=== PATIENT | male | born 1975 | race Caucasian/White ===

== ENCOUNTER 2018-03-12 09:32 | Emergency (ER) ==
[2018-03-12 09:39] VITALS: BP 129/83; TEMP 98.1; BMI 25.0
[2018-03-12] MEDS ORDERED: CLEOCIN PO STA (09:47)
[2018-03-12] MEDS ORDERED: NORCO 7.5-325 PO STA (09:47)
--- NOTE | 2018-03-12 09:50 | ED.PDOC ---
General ED Provider: Dr. ANALISA GOMEZ-ER Chief Complaint: Abscess Stated Complaint: jackie had staph before---jackie got several places in my hairline-- someone popped one of them with a needle Time Seen by Physician: 09:40 Mode of Arrival: Walk-In Information Source: Patient Exam Limitations: No limitations Nursing and Triage Documentation Reviewed and Agree: Yes Does patient meet sepsis criteria?: No System Inflammatory Response Syndrome: Not Applicable Sepsis Protocol: For patient's 13 years and over: Temp is 96.8 and below OR 101 and greater Pulse >90 BPM Resp >20/minute Acutely Altered Mental Status Are patient's symptoms suggestive of a new infection, such as: -Pneumonia -Skin, Soft Tissue -Endocarditis -UTI -Bone, Joint Infection -Implantable Device -Acute Abdominal Infection -Wound Infection -Meningitis -Blood Stream Catheter Infection -Unknown Skin Complaint Exam - Skin/Soft Tissue Complaint/Exam Onset/Duration: several days Symptoms Are: Still present Initial Severity: Mild Current Severity: Moderate Location: posterior scalp and posterior hairline Character: Reports: Redness, Raised, Painful Aggravating: Reports: None Alleviating: Reports: None Associated Signs and Symptoms: Reports: Tenderness Related History: Reports: Similar episode Related Surgical History: Reports: None Recent Exposure to Others w/Similar Symptoms: No Skin Findings: Present: Erythema, Skin lesion, Pustules Joint Tenderness Present: No Differential Diagnoses: Cellulitis, Infection Review of Systems - Review Of Systems Constitutional: Reports: No symptoms Eyes: Reports: No symptoms Ears, Nose, Mouth, Throat: Reports: No symptoms Respiratory: Reports: No symptoms Cardiac: Reports: No symptoms GI: Reports: No symptoms : Reports: No symptoms Musculoskeletal: Reports: No symptoms Skin: Reports: Lesions, Lumps Neurological: Reports: No symptoms Endocrine: Reports: No symptoms Hematologic/Lymphatic: Reports: No symptoms All Other Systems: Reviewed and Negative Past Medical History - Past Medical History Previously Healthy: Yes Endocrine: Reports: None Cardiovascular: Reports: None Respiratory: Reports: None Hematological: Reports: None Gastrointestinal: Reports: None Genitourinary: Reports: None Neuro/Psych: Reports: None Musculoskeletal: Reports: None Cancer: Reports: None - Surgical History General Surgical History: Reports: None - Family History Family History: Reports: None - Social History Smoking Status: Current every day smoker Hx Substance Use: No Alcohol Screening: Occasionally Lives: With family - Immunizations Tetanus Shot up to Date: Yes Physical Exam - Physical Exam Appearance: Well-appearing Pain Distress: Mild Eyes: CARSON, EOMI, Conjunctiva clear ENT: Ears normal, Nose normal, Oropharynx normal Neck: Supple Respiratory: Airway patent, Breath sounds clear, Breath sounds equal, Respirations nonlabored Cardiovascular: RRR GI/: Soft Musculoskeletal: Normal strength Skin: Warm (noted several places on his posterior hairline--no obvious abscess seen--follicular in nature) Neurological: Sensation intact, Alert, Oriented Psychiatric: Affect appropriate, Mood appropriate Critical Care Note - Critical Care Note Total Time (mins): 0 Course - Course Orders, Labs, Meds: Orders Category Date Time Status Clindamycin HCl [Cleocin] MEDS 03/12/18 09:47 Discontinued 300 mg PO ONCE STA Hydrocodone Bit/Acetaminophen [[place] 7.5-325] MEDS 03/12/18 09:47 Discontinued 1 tab PO ONCE STA Medications Discontinued Medications Generic Name Dose Route Start Last Admin Trade Name Freq PRN Reason Stop Dose Admin Hydrocodone Bitart/Acetaminophen 1 tab 03/12/18 09:47 03/12/18 09:54 [place] 7.5-325 PO 03/12/18 09:48 1 tab ONCE STA Administration Clindamycin HCl 300 mg 03/12/18 09:47 03/12/18 09:54 Cleocin PO 03/12/18 09:48 300 mg ONCE STA Administration MR Santoro asked me to "veronica it"--i explained the lesions were not ready for i and d yet--he says he is returning to work today and doesnt want to deal with it --i explained with warm compresses and antbx maybe it would be ready in 1-2 days ) Vital Signs: Temp Pulse Resp BP Pulse Ox 03/12/18 09:33 98.1 F 101 H 16 129/83 96 Departure - Departure Time of Disposition: 10:10 Disposition: HOME SELF-CARE Discharge Problem: Folliculitis Instructions: Folliculitis (ED) Condition: Good Pt referred to PMD for follow-up: Yes IPMP verified?: No Additional Instructions: warm compresses 10min q 2hs---clindamycin 300mg tid 7 days 0--norco 7.5mg q 4hrs prn pain #4---f/u with pcp in 1-2 days-- Allergies/Adverse Reactions: Allergies banana Adverse Reaction (Verified 03/12/18 09:41) Home Medications: Ambulatory Orders 1 [No Reported Medications] 03/12/18
== END 2018-03-12 10:17 | disposition home or self-care (01) ==
LOC: ED 09:32
DX: L73.9 Follicular disorder, unspecified (principal); F17.210 Nicotine dependence, cigarettes, uncomplicated
CPT/HCPCS: 99283

== ENCOUNTER 2018-04-22 10:50 | Emergency (ER) ==
[2018-04-22 10:59] VITALS: BP 138/75; TEMP 98.9; BMI 23.0
[2018-04-22] MEDS ORDERED: LIDOCAINE HCL 1% SDV SUBCUT STA (11:10)
--- NOTE | 2018-04-22 12:04 | ED.PDOC ---
General ED Provider: Dr. DESTIN BUENROSTRO Chief Complaint: Abscess Stated Complaint: patient noted swelling and redness to the right forarm and scalp for few days. He tried to have someone veronica the right forearm wound but it got worse. Time Seen by Physician: 10:30 Mode of Arrival: Walk-In Information Source: Patient Nursing and Triage Documentation Reviewed and Agree: Yes Does patient meet sepsis criteria?: No System Inflammatory Response Syndrome: Not Applicable Sepsis Protocol: For patient's 13 years and over: Temp is 96.8 and below OR 101 and greater Pulse >90 BPM Resp >20/minute Acutely Altered Mental Status Are patient's symptoms suggestive of a new infection, such as: -Pneumonia -Skin, Soft Tissue -Endocarditis -UTI -Bone, Joint Infection -Implantable Device -Acute Abdominal Infection -Wound Infection -Meningitis -Blood Stream Catheter Infection -Unknown Skin Complaint Exam - Skin/Soft Tissue Complaint/Exam Onset/Duration: 1 week Symptoms Are: Still present Timing: Constant Initial Severity: Moderate Current Severity: Severe Location: Right forearm and occipital scalp area. 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, Prior MRSA/VRE Recent Exposure to Others w/Similar Symptoms: No Skin Findings: Present: Fluctuant mass, Lymphangitic streaking, Skin lesion Differential Diagnoses: Abscess, Cellulitis, Infection, Lymphadenitis, MRSA Review of Systems - Review Of Systems Constitutional: Reports: No symptoms Eyes: Reports: No symptoms Ears, Nose, Mouth, Throat: Reports: No symptoms Respiratory: Reports: No symptoms Cardiac: Reports: No symptoms GI: Reports: No symptoms : Reports: No symptoms Musculoskeletal: Reports: No symptoms Skin: Reports: Lesions (as in HPI ) Neurological: Reports: Anxiety Endocrine: Reports: No symptoms Hematologic/Lymphatic: Reports: No symptoms All Other Systems: Reviewed and Negative Past Medical History - Past Medical History Previously Healthy: Yes Endocrine: Reports: None Cardiovascular: Reports: None Respiratory: Reports: None Hematological: Reports: None Gastrointestinal: Reports: None Genitourinary: Reports: None Neuro/Psych: Reports: None Musculoskeletal: Reports: None Cancer: Reports: None - Surgical History General Surgical History: Reports: None - Family History Family History: Reports: None - Social History Smoking Status: Current every day smoker Hx Substance Use: No Alcohol Screening: Occasionally - Immunizations Tetanus Shot up to Date: Yes Physical Exam - Physical Exam Appearance: Ill-appearing Ill-appearing: Mild Pain Distress: Moderate Respiratory: Respirations nonlabored Skin: Warm, Dry Psychiatric: Anxious Procedures - Incision and Drainage Site: Right forarm and occipital scalp area. Instrument Used: 11 Blade I & D Procedure: Yes: Hibiclens Prep Lidocaine Used: Yes Type of Drainage: Present: Pus, Blood Irrigated: Yes Progress: Tolerated poorly due to sensitivity to pain despite enough lidocaine used. Critical Care Note - Critical Care Note Total Time (mins): 0 Course - Course Orders, Labs, Meds: Orders Category Date Time Status CULTURE WOUND [WOUND CULTURE] Stat LAB 04/22/18 11:26 Uncollected Lidocaine HCl/Pf [Lidocaine HCl 1% Sdv] MEDS 04/22/18 11:10 Discontinued 10 ml SUBCUT ONCE STA Medications Discontinued Medications Generic Name Dose Route Start Last Admin Trade Name Freq PRN Reason Stop Dose Admin Lidocaine HCl 10 ml 04/22/18 11:10 Lidocaine Hcl 1% Sdv SUBCUT 04/22/18 11:11 ONCE STA Vital Signs: Temp Pulse Resp BP Pulse Ox 04/22/18 10:55 98.9 F 86 18 138/75 98 Departure - Departure Time of Disposition: 12:05 Disposition: HOME SELF-CARE Discharge Problem: Abscess Instructions: Abscess (ED) Condition: Fair Pt referred to PMD for follow-up: Yes IPMP verified?: No Additional Instructions: Take antibiotics as prescribed until gone. Follow up with the clinic in 2 days to have packing changed on the right forearm. Prescriptions: Ibuprofen [Motrin] 600 mg PO Q6H PRN #30 tablet PRN Reason: Analgesia Sulfamethoxazole/Trimethoprim [Bactrim Ds Tablet] 1 each PO BID #20 tablet Tramadol HCl [Ultram] 50 mg PO Q6H PRN #10 tablet PRN Reason: Severe Pain Allergies/Adverse Reactions: Allergies banana Adverse Reaction (Verified 03/12/18 09:41) Home Medications: Ambulatory Orders Ibuprofen [Motrin] 600 mg PO Q6H PRN #30 tablet 04/22/18 Sulfamethoxazole/Trimethoprim [Bactrim Ds Tablet] 1 each PO BID #20 tablet 04/22 Tramadol HCl [Ultram] 50 mg PO Q6H PRN #10 tablet 04/22/18 Disposition Discussed With: Patient
== END 2018-04-22 12:22 | disposition home or self-care (01) ==
LOC: ED 10:50
DX: L02.413 Cutaneous abscess of right upper limb (principal); L02.811 Cutaneous abscess of head [any part, except face]; F17.210 Nicotine dependence, cigarettes, uncomplicated
CPT/HCPCS: 87070; 87186; 99283

== ENCOUNTER 2018-12-05 17:29 | Emergency (ER) ==
[2018-12-05 17:33] VITALS: TEMP 98.2; BMI 23.3
[2018-12-05] MEDS ORDERED: SODIUM CHLORIDE IV STA (17:33)
[2018-12-05] MEDS ORDERED: DECADRON IV STA (17:33)
[2018-12-05] MEDS ORDERED: EPINEPHRINE 1 MG/ML AMP IM STA (17:33)
[2018-12-05] MEDS ORDERED: SODIUM CHLORIDE 1,000 ML IV STA (17:34)
[2018-12-05] MEDS ORDERED: DECADRON 4 MG/ML SDV IVP STA (17:36)
[2018-12-05] MEDS ORDERED: BENADRYL PO STA (17:46)
[2018-12-05 18:14] VITALS: BP 135/76
--- NOTE | 2018-12-05 18:52 | ED.PDOC ---
General ED Provider: Dr. RADHA ALVARADO Chief Complaint: Allergic Reaction Stated Complaint: Cant breathe; throat closing off - allergic to banannas - ate one 2 hours ago; 45 minutes ago started feeling allergic sx. Had this happen one time before and throat nearly closed off. Time Seen by Physician: 17:35 Mode of Arrival: Walk-In Information Source: Patient Nursing and Triage Documentation Reviewed and Agree: Yes Does patient meet sepsis criteria?: No System Inflammatory Response Syndrome: Not Applicable Sepsis Protocol: For patient's 13 years and over: Temp is 96.8 and below OR 101 and greater Pulse >90 BPM Resp >20/minute Acutely Altered Mental Status Are patient's symptoms suggestive of a new infection, such as: -Pneumonia -Skin, Soft Tissue -Endocarditis -UTI -Bone, Joint Infection -Implantable Device -Acute Abdominal Infection -Wound Infection -Meningitis -Blood Stream Catheter Infection -Unknown Review of Systems - Review Of Systems Constitutional: Reports: Malaise Ears, Nose, Mouth, Throat: Reports: Mouth swelling (Subjectively; taking without difficulty) Respiratory: Reports: Short of air GI: Reports: No symptoms. Denies: Nausea All Other Systems: Reviewed and Negative Past Medical History - Past Medical History Previously Healthy: Yes Endocrine: Reports: None Cardiovascular: Reports: None Respiratory: Reports: None Hematological: Reports: None Gastrointestinal: Reports: None Genitourinary: Reports: None Neuro/Psych: Reports: None Musculoskeletal: Reports: None Cancer: Reports: None - Surgical History General Surgical History: Reports: None - Family History Family History: Reports: None - Social History Smoking Status: Current every day smoker, Heavy tobacco smoker Hx Substance Use: No Alcohol Screening: None Physical Exam - Physical Exam Appearance: Ill-appearing Ill-appearing: Mild Pain Distress: None Eyes: CARSON, EOMI ENT: Oropharynx normal Neck: Supple Respiratory: Airway patent, Breath sounds clear Cardiovascular: RRR, Pulses normal GI/: Soft, Nontender Musculoskeletal: Normal strength Skin: Warm, Dry, Normal color Neurological: Sensation intact, Motor intact, Alert, Oriented Psychiatric: Affect appropriate, Mood appropriate, Anxious (Very) Critical Care Note - Critical Care Note Total Time (mins): 25 Course - Course Orders, Labs, Meds: Orders Category Date Time Status Dexamethasone 4 mg/ml Inj [Decadron 4 mg/ml Sdv] MEDS 12/05/18 17:36 Discontinued 8 mg IVP ONCE STA Diphenhydramine Liquid [Benadryl] MEDS 12/05/18 17:46 Discontinued 25 mg PO ONCE STA Epinephrine Amp [Epinephrine 1 mg/ml Amp] MEDS 12/05/18 17:33 Discontinued 0.4 mg IM ONCE STA Sodium Chloride 0.9% [Sodium Chloride] 1,000 ml MEDS 12/05/18 17:34 Discontinued IV BOLUS Medications Discontinued Medications Generic Name Dose Route Start Last Admin Trade Name Kit PRN Reason Stop Dose Admin Dexamethasone Sodium Phosphate 8 mg 12/05/18 17:36 12/05/18 17:43 Decadron 4 Mg/Ml Sdv IVP 12/05/18 17:37 8 mg ONCE STA Administration Diphenhydramine HCl 25 mg 12/05/18 17:46 12/05/18 17:50 Benadryl PO 12/05/18 17:47 25 mg ONCE STA Administration Epinephrine HCl 0.4 mg 12/05/18 17:33 12/05/18 17:43 Epinephrine 1 Mg/Ml Amp IM 12/05/18 17:34 0.4 mg ONCE STA Administration Sodium Chloride 1,000 mls @ 1,000 mls/hr 12/05/18 17:34 12/05/18 17:45 Sodium Chloride IV 12/05/18 18:33 1,000 mls/hr BOLUS STA Administration Vital Signs: Temp Pulse Resp BP Pulse Ox 12/05/18 18:00 69 14 135/76 98 12/05/18 17:38 85 12 116/60 99 12/05/18 17:29 98.2 F 93 H 20 107/75 98 Departure - Departure Time of Disposition: 18:55 Disposition: HOME SELF-CARE Discharge Problem: Allergic reaction Instructions: Urticaria (ED), Food Allergy (ED) Condition: Stable Pt referred to PMD for follow-up: Yes (Follow up with primary care) IPMP verified?: No Additional Instructions: Take benadryl every 4 to 6 hours if symptoms return. If symptoms return and are not helped with Benadryl return to ER Allergies/Adverse Reactions: Allergies banana Adverse Reaction (Verified 12/05/18 17:33) Home Medications: Ambulatory Orders 1 [No Reported Medications] 12/05/18
== END 2018-12-05 19:04 | disposition home or self-care (01) ==
LOC: ED 17:29
DX: T78.1XXA Other adverse food reactions, not elsewhere classified, initial encounter (principal); F17.210 Nicotine dependence, cigarettes, uncomplicated
CPT/HCPCS: 96361; 96372; 96374; 99283

== ENCOUNTER 2019-01-28 11:04 | Emergency (ER) ==
[2019-01-28 11:10] VITALS: BP 148/100; TEMP 97.6; BMI 22.4
[2019-01-28] MEDS: SODIUM CHLORIDE 1,000 ML IV STA (11:40)
--- NOTE | 2019-01-28 12:49 | CT ---
EXAM: CT of the head without contrast History: Head trauma. Technique: Multiplanar CT images through the head were obtained without the administration of IV con trast Findings: The visualized paranasal sinuses and mastoid air cells are clear in general. No acute patrizia varial abnormalities. Moderate left periorbital soft tissue swelling and left frontal scalp swelling . Intracranially the ventricular and cisternal spaces are normal in size, shape and configuration for a patient of this age. No dominant mass or midline shift. No hydrocephalous. No acute intracranial hemorrhage or abnormal extraaxial fluid collections. Impression: 1. No acute intracranial process. 2. Moderate left periorbital soft tissue swelling and left frontal scalp swelling
--- NOTE | 2019-01-28 12:51 | CT ---
EXAM: CT of the maxillofacial region without contrast History: Facial trauma. Technique: Multiplanar CT images through the maxillofacial region were obtained without the administ ration of IV contrast Findings: There is mild mucosal thickening of the paranasal sinuses. Bilateral ostiomeatal units ar e not occluded. Nasal septum is bowed to the right. Mastoid air cells are clear. No acute fracture or dislocation. There is moderate left periorbital soft tissue swelling. Impression: 1. No acute fracture. 2. Moderate left periorbital soft tissue swelling. 3. Mild paranasal sinus mucosal thickening
--- NOTE | 2019-01-28 12:55 | CT ---
EXAM: CT cervical spine without intravenous contrast 01/28/2019. Sagittal and coronal reformatted i mages obtained HISTORY: Trauma COMPARISON: None. FINDINGS: Normal anatomic alignment is maintained. Vertebral bodies appear intact and the facet evelyn nts align normally. The prevertebral soft tissues appear within normal limits. There is no fracture or subluxation at an y level. Multilevel chronic degenerative disc disease. Multilevel posterior disc bulge/osteophyte complex fla ttening the thecal sac. Posterior disc bulge appears most severe at C3-C4. This causes flattening OF the anterior cord most compatible with spinal stenosis. IMPRESSION: 1. No acute post traumatic osseous abnormality of the cervical spine 2. Multilevel chronic degenerative disc disease most severe at C3-C4. This process appears to cause spinal stenosis. 3. Follow-up outpatient MRI could be considered for further evaluation if clinically indicated.
--- NOTE | 2019-01-28 13:03 | CT ---
EXAM: CT thoracic spine without intravenous contrast 01/28/2019. Sagittal and coronal reformatted i mages obtained HISTORY: Trauma COMPARISON: None. FINDINGS: Normal anatomic alignment is maintained. The thoracic vertebral bodies appear intact witho ut fracture. The facet joints align normally. Multilevel chronic degenerative endplate change. No bony encroachment on the spinal canal No fracture or subluxation at any level. IMPRESSION: No acute post traumatic osseous abnormality of the thoracic spine.
--- NOTE | 2019-01-28 13:05 | CT ---
EXAM: CT lumbar spine without intravenous contrast 01/28/2019. Sagittal and coronal reformatted diane ges obtained HISTORY: Trauma COMPARISON: 01/28/2019 FINDINGS: A normal lumbar lordosis is maintained. Vertebral bodies intact without fracture. The fa cet joints align normally. Multilevel chronic degenerative disc disease and degenerative endplate change. Multilevel anterior o steophyte formation No fracture or subluxation identified at any level. IMPRESSION: No acute post traumatic osseous abnormality of the lumbar spine.
--- NOTE | 2019-01-28 13:07 | DI ---
EXAM: Three views of the right elbow HISTORY: Trauma TECHNIQUE: AP lateral, oblique views of the right elbow were obtained. FINDINGS: No acute fractures are seen. There is anatomic alignment. The soft tissues are normal. IMPRESSION: No acute fracture dislocation seen within the right elbow.
--- NOTE | 2019-01-28 13:10 | DI ---
EXAM: Two views of the left hand HISTORY: Trauma TECHNIQUE: AP lateral, oblique views of the left hand were obtained. FINDINGS: No acute fractures are seen. There is anatomic alignment. The soft tissues are normal. There is an old fracture of the ulnar styloid process. IMPRESSION: No acute fracture dislocation seen within the left hand.
--- NOTE | 2019-01-28 13:13 | CT ---
EXAM: CT chest, abdomen pelvis with intravenous contrast 01/28/2019. Sagittal and coronal reformatt ed images obtained HISTORY: Trauma COMPARISON: 01/28/2019 FINDINGS: Soft tissue swelling of the left anterior chest. There is stranding / edema of the subcut aneous fat. This may relate to contusion. There is also thickening of the underlying pectoral muscl e which which may relate to edema/contusion. The heart size appears within normal limits. No pericardial effusion. No acute abnormality the aorta. Lungs appear well aerated. No pulmonary consolidation, effusion or pneumothorax. The liver, gallbladder, adrenal glands and kidneys show no acute abnormality. The spleen and pancrea s show no acute process. No bowel obstruction. Normal appendix. Unremarkable urinary bladder. No free air or free fluid. No acute osseous abnormality. IMPRESSION: 1. Soft tissue swelling of the left anterior chest wall. This likely relates to edema/contusion. T his involves the subcutaneous fat and underlying pectoral musculature. 2. No acute cardiopulmonary process 3. No acute osseous abnormality. 4. No acute post traumatic process within the abdomen or pelvis.
--- NOTE | 2019-01-28 13:16 | DI ---
Exam: Three views of the left wrist. Comparison: CT of the left wrist performed 07/27/2018. Reason for exam: Trauma. FINDINGS: No acute fracture or malalignment. The joint spaces appear relatively well maintained. N o unexplained calcific soft tissue density or radiopaque retained foreign body. Impression: No acute fracture is seen in the left wrist.
[2019-01-28] MEDS: TORADOL IVP STA (13:23)
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
== END 2019-01-28 15:11 | disposition left against medical advice (07) ==
LOC: ED 11:04
DX: S00.81XA Abrasion of other part of head, initial encounter (principal); S60.812A Abrasion of left wrist, initial encounter; S60.811A Abrasion of right wrist, initial encounter; M54.2 Cervicalgia; S09.90XA Unspecified injury of head, initial encounter; Y04.2XXA Assault by strike against or bumped into by another person, initial encounter; F17.210 Nicotine dependence, cigarettes, uncomplicated
CPT/HCPCS: 36415; 80053; 80307; 82150; 83690; 85025; 96361; 96374; 99283